=== PATIENT | female | born 1980 | race Caucasian/White ===

== ENCOUNTER → 2016-12-02 | Outpatient (CLI) | payer BC | END | disposition home or self-care (01) | LOC: C.PAPS 14:09 | PROVIDERS: ATTEND Obstetrics & Gynecology | DX: Z01.419 Encounter for gynecological examination (general) (routine) without abnormal findings (principal) ==

== ENCOUNTER → 2017-01-07 | Outpatient (CLI) | payer BC | END | disposition home or self-care (01) | LOC: C.LAB1850 11:21 | PROVIDERS: ATTEND Obstetrics & Gynecology | DX: O09.299 Supervision of pregnancy with other poor reproductive or obstetric history, unspecified trimester (principal) ==

== ENCOUNTER → 2017-02-03 | Outpatient (CLI) | payer BC | END | disposition home or self-care (01) | LOC: C.LAB1850 11:22 | PROVIDERS: ATTEND Obstetrics & Gynecology | DX: O09.299 Supervision of pregnancy with other poor reproductive or obstetric history, unspecified trimester (principal); Z3A.00 Weeks of gestation of pregnancy not specified ==

== ENCOUNTER → 2017-03-05 | Outpatient (CLI) | payer BC ==
[~2017-03-05] MED LIST: DOCO1CAP10; MAGN400T6 PO; PRENTAB26 PO
== END | disposition home or self-care (01) ==
LOC: C.LABSPEC 17:42
PROVIDERS: ATTEND Obstetrics & Gynecology
DX: O09.521 Supervision of elderly multigravida, first trimester (principal)

== ENCOUNTER → 2017-03-31 | Outpatient (CLI) | payer OTHER | END | disposition home or self-care (01) | LOC: C.LAB1850 14:43 | PROVIDERS: ATTEND Obstetrics & Gynecology | DX: O09.521 Supervision of elderly multigravida, first trimester (principal) ==

== ENCOUNTER → 2017-07-07 | Outpatient (CLI) | payer OTHER ==
[2017-07-07 16:33] LABS: HEMATOCRIT 38.9 % (37-47); HEMOGLOBIN 13.4 g/dL (12.0-16.0)
== END | disposition home or self-care (01) ==
LOC: C.LAB1850 15:06
PROVIDERS: ATTEND Obstetrics & Gynecology
DX: O09.523 Supervision of elderly multigravida, third trimester (principal); Z3A.00 Weeks of gestation of pregnancy not specified

== ENCOUNTER → 2017-07-09 | Outpatient (CLI) | payer OTHER | END | disposition home or self-care (01) | LOC: C.LAB1850 08:14 | PROVIDERS: ATTEND Obstetrics & Gynecology | DX: O28.1 Abnormal biochemical finding on antenatal screening of mother (principal) ==

== ENCOUNTER 2017-10-10 11:37 | Inpatient (IN) | payer OTHER ==
[~2017-10-10] VITALS: Ht 157.5 cm; Wt 54.5 kg
[2017-10-10] MEDS ORDERED: LACTATED RINGER'S 1000ML 1,000 ML IV PRN (11:59)
[2017-10-10] MEDS ORDERED: BUPIVACAINE 0.25% 30 ML VIAL ONE (12:08)
[2017-10-10] MEDS ORDERED: FENTANYL CITRATE INJ 50 MCG/1 ML 2 ML VIAL ONE (12:09)
[2017-10-10] MEDS ORDERED: EpHEDrine SULFATE INJ 50 MG/ML AMP ONE (12:09)
[2017-10-10] MEDS ORDERED: FENTANYL 2MCG/ML ROPIV 1.25MG/ML 100ML BAG ONE (12:10)
[2017-10-10 12:18] LABS: HEMATOCRIT 38.8 % (37-47); HEMOGLOBIN 13.6 g/dL (12.0-16.0); MEAN CELL VOLUME 93.9 fL (80-100); MEAN CORPUSCULAR HEMOGLOBIN 32.9 pg (25-34); MEAN CORPUSCULAR HGB CONC 35.1 g/dl (32-36); MEAN PLATELET VOLUME 11.1 fL (7.4-10.4); PLATELET COUNT 157 K/uL (130-400); RED CELL DISTRIBUTION WIDTH CV 13.1 % (11.5-14.5); RED CELL DISTRIBUTION WIDTH SD 45.3 fL (36.4-46.3); WHITE BLOOD COUNT 10.41 K/uL (4.8-10.8)
[2017-10-10] MEDS: LACTATED RINGER'S 1000ML 1,000 ML IV SCH ×2 (12:40→13:43)
[2017-10-10 12:43] VITALS: Ht 157.5 cm; Wt 54.5 kg
[2017-10-10] MEDS ORDERED: DOCO1CAP10 (12:46)
[2017-10-10] MEDS ORDERED: PRENTAB26 PO (12:46)
[2017-10-10] MEDS ORDERED: MAGN400T6 PO (12:47)
[2017-10-10] MEDS ORDERED: FENTANYL 2MCG/ML ROPIV 1.25MG/ML 100ML BAG EPI PRN (13:45)
[2017-10-10] MEDS ORDERED: EpHEDrine SULFATE INJ 50 MG/ML AMP IV PRN (13:45)
[2017-10-10] MEDS ORDERED: NALOXONE HCL INJ 0.4 MG/1 ML VIAL/CARP IV PRN (13:45)
[2017-10-10] MEDS ORDERED: LACTATED RINGER'S 1000ML 500 ML IV PRN (14:00)
[2017-10-10] MEDS ORDERED: OXYTOCIN 30 UNITS/500ML NSS IV ONE (14:41)
[2017-10-10] MEDS ORDERED: OXYTOCIN 30 UNITS/500ML NSS IV PRN (15:15)
[2017-10-10] MEDS ORDERED: SUPERCREAM 0.870 % 15GM JAR EXT PRN (15:15)
[2017-10-10] MEDS ORDERED: LANOLIN OINT EXT PRN (15:15)
[2017-10-10] MEDS ORDERED: ACETAMINOPHEN 325 MG TAB PO PRN (15:15)
[2017-10-10] MEDS ORDERED: BENZOCAINE 20% AER SPR 82.5 GM CAN EXT PRN (15:15)
[2017-10-10] MEDS ORDERED: OXYCODONE/ACETAMINOPHEN 5-325 TAB PO PRN (15:15)
--- NOTE | 2017-10-10 15:42 | DELIVERY SUMMARY ---
DATE OF OPERATION: 10/10/2017 Patient is a 37-year-old 5, para 1-0-3-1 white female, EDC of 10/14/2017, who presented in spontaneous labor. She ruptured spontaneously while here in labor and delivery for scant clear fluid. She received second epidural analgesia. She progressed to full dilation and pushed effectively over an intact perineum for delivery of a viable female patient. Mouth and nasopharynx were suctioned after delivery of the rest of the , and the was placed on the mother's abdomen for attention and drying. There was vigorous crying, and the was moving all 4 limbs. The cord was clamped and cut after 30 seconds by the father of the baby, and the placenta was then expressed intact with a 3-vessel cord. First degree perineal laceration was repaired with 3-0 chromic in the usual fashion. Estimated blood loss was 250 mL. Mother and infant were doing well after delivery. I attest to the content of the Intraoperative Record and any orders documented therein. Any exception s are noted below.
--- NOTE | 2017-10-10 16:33 | Anesthesia Procedure Note ---
Anesthesia Epidural Removal Nt Date & Time Oct 10, 2017 at 16:32 Vital Signs Pain Intensity: 2 Notes Mental Status: alert / awake / arousable, participated in evaluation Nausea / Vomiting: adequately controlled Pain: adequately controlled Airway Patency, RR, SpO2: stable & adequate BP & HR: stable & adequate Hydration State: stable & adequate Neuraxial Anesthesia: was administered Anesthetic Complications: no major complications apparent, pt satisfied with anesthetic care Epidural: removed without complications, with tip intact
[2017-10-10] MEDS: IBUPROFEN 600 MG TAB PO PRN ×2 (17:30→21:56)
[2017-10-10 18:40] VITALS: BP 113/75; PULSE 103; TEMP 36.7
[2017-10-10] MEDS: DOCUSATE SODIUM 100 MG CAP PO SCH (21:25)
[2017-10-10 23:30] VITALS: BP 99/61; PULSE 85; TEMP 36.6; O2SAT 94
[2017-10-11] MEDS: IBUPROFEN 600 MG TAB PO PRN ×5 (02:10→19:27)
[2017-10-11 02:45] VITALS: BP 107/72; PULSE 79; TEMP 36.4; O2SAT 99
--- NOTE | 2017-10-11 06:05 | Discharge Instructions ---
Discharge Instructions Date of Service Oct 11, 2017. Admission Reason for Admission: R/O Labor Discharge Discharge Diagnosis / Problem: normal delivery recovery Discharge Goals Goal(s): Routine recovery after delivery Medications Continue Dispensed Medications: supercream, dermaplast, tucks, lansinoh Activity Recommendations Activity Limitations: per Instructions/Follow-up section . Instructions / Follow-Up Instructions / Follow-Up ACTIVITY RECOMMENDATIONS: * Gradual return to full activity over the next 2-3 weeks. * No lifting - nothing heavier than baby over the next 2-3 weeks. * Do not engage in vigorous exercise, sexual activity or sports until cleared by your physician. * Do not drive or operate any motorized equipment until cleared by your physician. * You may shower/bathe daily. MEDICATIONS: For discomfort or pain, you may use Acetaminophen (Tylenol), Ibuprofen (Advil), or Naproxen (Aleve) following the package directions. For constipation you may use Colace following the package directions. BREAST CARE: If you are not breast feeding: * Wear a supportive bra 24 hours a day for one to two weeks. * Avoid stimulating your breasts and nipples as much as possible during the first few weeks after delivery. * When taking a shower, have the warm water hit your back, not breasts. * When your breasts feel full, apply ice packs. Usually three to four times a day helps ease the discomfort. * Take a mild pain medication (Tylenol / Motrin) when you are uncomfortable. If breast feeding: * Use breast milk to lubricate nipples. Lansinoh cream may be used for sore nipples. You do not need to remove cream prior to breast feeding. If using a different brand of cream, check the label for directions regarding removal of cream prior to nursing. * Wear a supportive bra. * If having problems with breasts or breast feeding, call a lending consultant or your health care provider. EPISIOTOMY CARE: After delivery, if you have an episiotomy (stitches), the following steps will ease discomfort and aid healing. * For the first 24 hours after delivery, place ice packs next to your episiotomy to help reduce swelling. * After the first 24 hour-period, sitz baths, either portable or in the tub, are suggested. A shower with a shower arm sprayed over the episiotomy may be comforting. * Rubi care should be done after each voiding and bowel movement. Squirt warm water from a plastic bottle over the perineum (region of the body between the anus and urinary opening) and pat dry. * Use Dermoplast to ease discomfort. Shake container. [place] directly over the episiotomy. Place a Tucks on a clean sanitary pad next to your episiotomy. SPECIAL CARE INSTRUCTIONS: When you are discharged from the hospital, it is important for you to follow the instructions listed below: * During the first week at home, you should be able to care for yourself and your baby. In addition, the usual light household activities are encouraged. * Limit your activities to the way you feel. Do not try to clean the house or move furniture. Be sensible. * If you actively engage in sports and have done so up until the time of your delivery, you may resume these activities as soon as you feel able. This may take up to one month or even longer. Use good judgment. * Continue to take your vitamins for at least six weeks after the of your baby. * Your diet need not be limited unless you were on a special diet before your delivery. Breast-feeding mothers need around 2500 calories per day and at least 64-80 ounces of fluid per day (8 to 10 glasses). * You should eat foods from the four major food groups. Crash diets or fad diets are to be avoided. Eating lean meats, fresh fruits and vegetables, low-fat dairy products, high fiber foods and a regular exercise program, will help you get back to your pre- weight without putting your health at risk. * Constipation is sometimes a problem after delivery. Take a mild laxative as needed. If breast feeding, Milk of Magnesia is acceptable to use. You may use a suppository or Fleets enema if no episiotomy. * A daily shower or tub bath is suggested. Be sure to thoroughly and gently dry the perineum. * A bloody vaginal discharge will usually continue until around four weeks post . A small amount of bleeding may continue for as long as six weeks. Vaginal discharge changes from the bright red bleeding after delivery to pink then brownish and finally yellowish-pink before becoming white and disappearing. * Bleeding may increase with activity. Your first period may come in 4-8 weeks. If you are breast feeding, your period may be delayed even longer. * [place] (sex) can begin whenever both you and your partner feel comfortable and do not have any form of genital infection. It is recommended that you wait at least six weeks for internal and external healing to occur. If you have questions, please talk to your health care practitioner. A condom should be used to prevent infection and . * Foreplay, gentle intercourse and lubrication is very important the first several times to prevent pain. A water-based lubricant such as K-Y jelly or Astroglide may be used. * If you have RH negative blood and your baby is RH positive, you will receive RHOGAM by injection prior to discharge. The nurse will give you a card to keep with you that has the date and place that you received RHOGAM after delivery. * During your care, you had a Rubella screen done to check for the presence of rubella antibodies in your blood. If your test was negative, you will receive a Rubella vaccine prior to discharge. This vaccine may cause a fever, soreness at the injection site and flu-like symptoms. If these symptoms persist, notify your health care practitioner. is not advised for one month after a Rubella vaccine. * Verbalizes understanding of car seat law as reviewed with patient nursing. * Car Seat hand-out given and reviewed with patient by nursing. * Shaken baby information reviewed with patient by nursing. Call you doctor if: * Heavy bleeding (saturating several pads an hour) or passing clots the size of your fist. * A fever >101 degrees F (38.3 degrees C) on two occasions four hours apart and /or chills. * Unusual pain in the pelvic or vaginal areas. * "Baby Blues" lasting longer than two weeks. If you have any questions or concerns, call your health care practitioner at . FOLLOW UP VISIT: * Please call the office at to schedule a 6 week examination. It is important you keep this appointment. It is important for you to make arrangements for either yearly or twice yearly check-ups thereafter. Current Hospital Diet Patient's current hospital diet: Regular OB Diet Discharge Diet Recommended Diet: Regular OB Diet Pending Studies Studies pending at discharge: no Medical Emergencies . Who to Call and When: Medical Emergencies: If at any time you feel your situation is an emergency, please call 911 immediately. . Non-Emergent Contact Non-Emergency issues call your: Access Rep . . "Provider Documentation" section prepared by Awilda Simental .
--- NOTE | 2017-10-11 06:49 | Progress Note ---
Subjective Oct 11, 2017. Subjective conversation w/ patient, conversation w/ family, physical exam, chart review, lab review Ambulation: ambulating normally Voiding: no voiding problems Passing Gas: Yes Diet Tolerance: Regular Diet Lochia: Small Feeding Type: Breast Feeding Review of Systems Constitutional: No fever Respiratory: No shortness of breath Cardiac: No chest pain Abdomen: No nausea, No vomiting No headache Objective Vital Signs Date Time Temp Pulse Resp B/P (MAP) Pulse Ox O2 Delivery O2 Flow Rate FiO2 10/11/17 02:45 36.4 79 16 107/72 (84) 99 Room Air 10/10/17 23:30 Room Air 10/10/17 23:30 36.6 85 16 99/61 (74) 94 Room Air 10/10/17 18:40 36.7 103 18 113/75 (88) Room Air 10/10/17 18:40 Room Air Physical Exam General Appearance: WELL-APPEARING, WD/WN Respiratory/Chest: no respiratory distress, no accessory muscle use Fundus: Firm, Non-Tender, Relation to Umbilicus (2cm inferior to umbilicus) Laboratory Results Last 24 Hours Test 10/10/17 12:05 10/11/17 04:44 White Blood Count 10.41 K/uL Red Blood Count 4.13 M/uL Hemoglobin 13.6 g/dL Hematocrit 38.8 % Mean Corpuscular Volume 93.9 fL Mean Corpuscular Hemoglobin 32.9 pg Mean Corpuscular Hemoglobin Concent 35.1 g/dl RDW Standard Deviation 45.3 fL RDW Coefficient of Variation 13.1 % Platelet Count 157 K/uL Mean Platelet Volume 11.1 fL Medications Current Inpatient Medications Medications (Trade) Dose Ordered Sig/Kateryna Route Start Time Stop Time Status Last Admin Dose Admin Lactated Ringer's 1,000 ml @ 125 mls/hr Q8H IV 10/10/17 11:59 10/12/17 11:58 10/10/17 13:43 125 MLS/HR Lactated Ringer's 1,000 ml @ 999 mls/hr Q1H1M PRN IV 10/10/17 11:59 11/09/17 11:58 10/10/17 12:40 999 MLS/HR Oxytocin (Pitocin IV) 30 units UD PRN IV 10/10/17 15:15 11/09/17 15:14 Benzocaine (Dermoplast Aero Spr) 1 appln PRN PRN EXT 10/10/17 15:15 11/09/17 15:14 Cocaine HCl (Supercream 0.870% Cr) BID PRN EXT 10/10/17 15:15 10/24/17 15:14 Lanolin (Lanolin Oint) PRN PRN EXT 10/10/17 15:15 11/09/17 15:14 Prenat Multivit/ Solution Director/Iron/Folic Ac ( Vitamin Tab) 1 tab DAILY PO 10/11/17 08:00 11/10/17 07:59 Ibuprofen (Motrin Tab) 600 mg Q4H PRN PO 10/10/17 15:15 11/09/17 15:14 10/11/17 05:45 600 MG Acetaminophen (Tylenol Tab) 650 mg Q6H PRN PO 10/10/17 15:15 11/09/17 15:14 Oxycodone/ Acetaminophen (Percocet 5-325mg Tab) 1 tab Q4H PRN PO 10/10/17 15:15 10/24/17 15:14 Bisacodyl (Dulcolax Tab) 5 mg 20 PO 10/11/17 20:00 10/11/17 20:01 Docusate Sodium (coLACE CAP) 100 mg BID PO 10/10/17 20:00 11/09/17 19:59 Assessment and Plan Problem List Medical Problems: (1) Normal labor Post- Day#: 1 Continue Routine Care: Resident Physician Supervision Note: I was present with Dr. Carmelita Bryant during the history and exam. I discussed the case with the resident and agree with the findings and plan as documented in the note. Any exceptions or clarifications are listed here: [None] Documented By: Awilda Brown - Vital signs reviewed and within normal limits - Encourage , ambulation - Will monitor and control pain with PRN analgesics - All questions and concerns addressed
[2017-10-11] MEDS ORDERED: PRENATAL VITAMIN TAB PO SCH (08:00)
[2017-10-11 08:19] LABS: HEMATOCRIT 36.4 % (37-47); HEMOGLOBIN 12.5 g/dL (12.0-16.0)
[2017-10-11] MEDS: DOCUSATE SODIUM 100 MG CAP PO SCH ×2 (08:42→19:26)
[2017-10-11 09:15] VITALS: BP 103/67; PULSE 90; TEMP 36.6; O2SAT 98
[2017-10-11 12:10] VITALS: BP 115/79; PULSE 83; TEMP 36.6; O2SAT 97
[2017-10-11 15:15] VITALS: BP 103/64; PULSE 89; TEMP 36.9
[2017-10-11 19:19] VITALS: BP_DIAS 64; PULSE 89; TEMP 36.9
[2017-10-11] MEDS ORDERED: BISACODYL 5 MG TABEC PO SCH (20:00)
== END 2017-10-11 19:45 | disposition home or self-care (01) | DRG 775 ==
LOC: C.OPB 11:37 → C.LD 11:37 → C.OPB 12:01 → C.LD 12:15 → C.OBG 18:38 → EDSTATUS 10-14 11:40
PROVIDERS: ADMIT Obstetrics & Gynecology; ATTEND Obstetrics & Gynecology
PROC: 10E0XZZ Delivery of Products of Conception, External Approach (ICD-10-PCS; principal; 2017-10-10)
PROC: 0HQ9XZZ Repair Perineum Skin, External Approach (ICD-10-PCS; principal; 2017-10-10)
DX: O70.0 First degree perineal laceration during delivery (principal); Z3A.39 39 weeks gestation of pregnancy; Z37.0 Single live birth

== ENCOUNTER 2021-01-23 07:44 | Inpatient (IN) ==
[2021-01-23] MEDS ORDERED: OXYTOCIN 30 UNITS/500 ML BAG IV PRN ×3 (08:26→13:45)
[2021-01-23 08:52] LABS: Hematocrit (blood only) 37.6 % (37-47); Hemoglobin 12.8 g/dL (12.0-16.0); Mean Corpuscular Hemoglobin 31.4 pg (25-34); Mean Corpuscular Volume 92.2 fL (80-100); Mean Platelet Volume 10.9 fL (7.4-10.4); Platelet Count 187 K/uL (130-400); RDW Coefficient of Variation 13.7 % (11.5-14.5); RDW Standard Deviation 46.2 fL (36.4-46.3); Red Blood Count 4.08 M/uL (4.2-5.4); White Blood Count 7.77 K/uL (4.8-10.8)
[2021-01-23] MEDS: LACTATED RINGER'S 1,000 ML IV PRN ×2 (09:16→12:20)
[2021-01-23] MEDS ORDERED: BUPIVACAINE 0.25% 30 ML VIAL ONE (11:42)
[2021-01-23] MEDS ORDERED: fentaNYL citrate 100 MCG/2 ML VIAL ONE (11:42)
[2021-01-23] MEDS ORDERED: ePHEDrine sulfate 50 MG/ML AMP ONE (11:42)
[2021-01-23] MEDS ORDERED: SODIUM CHLORIDE 0.9% INJ 10 ML VIAL ONE (11:42)
[2021-01-23] MEDS ORDERED: fentaNYL 2MCG/ML ROPIVACAINE 1.25MG/ML 100 ML BAG EPI ONE (11:43)
--- NOTE | 2021-01-23 11:49 | Labor Progress Brief Note ---
Date of Service January 23, 2021 Subjective Tolerating contractions well. May want epidural soon if AROM is completed at this exam. Assessment & Plan Admission and Anticipated Discharge Date Admission Date: January 23, 2021 Physical Exam Genitourinary: FHT Cat 1 Tarina Q4 Cvx /-2 Head well applied AROM copious clear Results & Data ([facility]) Vital Signs (Past 12 Hours) Vital Signs Temp Pulse Resp BP 01/23/21 11:38 97.7 F 01/23/21 11:22 90 102/59 L 01/23/21 10:22 85 100/56 L 01/23/21 09:19 83 105/63 01/23/21 08:17 97.7 F 20 01/23/21 08:04 94 H 122/74 Coding Level of Care Code None
[2021-01-23] MEDS ORDERED: fentaNYL 2MCG/ML ROPIVACAINE 1.25MG/ML 100 ML BAG EPI PRN (12:06)
[2021-01-23] MEDS ORDERED: NALOXONE HCL 0.4 MG/1 ML VIAL/CARP IV PRN (12:06)
[2021-01-23] MEDS ORDERED: NALOXONE HCL 1 MG in SODIUM CHLORIDE 0.9% 1000ML 1,000 ML IV PRN (12:06)
[2021-01-23] MEDS ORDERED: ePHEDrine sulfate 50 MG/ML AMP IV PRN (12:06)
[2021-01-23] MEDS ORDERED: NALBUPHINE HCL INJ 10 MG/ML AMP IV PRN (12:06)
[2021-01-23] MEDS ORDERED: diphenhydrAMINE 50 MG/ML VIAL IV PRN (12:06)
[2021-01-23] MEDS ORDERED: ONDANSETRON INJ 2 MG/ML 2 ML VIAL IV PRN (12:06)
--- NOTE | 2021-01-23 12:06 | Anesthesiology Consultation ---
Date of Service January 23, 2021 Assessment & Plan ASA ASA3 Proposed Anesthesia Anesthesia Type: Labor Epidural Risk / Benefits Reviewed With: PT / POA / Parent / Guardian, Accepts Plan and Informed Consent Obtained History Height/Weight Height: 5 ft 1 in Weight: 54.885 kg Allergies Allergy/AdvReac Type Severity Reaction Status Date / Time No Known Allergies Allergy Verified 01/23/21 08:37 Medications Home Medications Medication Instructions Recorded Confirmed Last Taken prenat.vits,marie,aba-orsy-zrwcy 1 tab PO DAILY 10/27/20 01/23/21 01/22/21 22:00 blood sugar diagnostic (OneTouch #150 ea 11/13/20 01/22/21 Unknown Verio test strips) lancets 33 gauge (OneTouch Delica #150 ea 11/13/20 01/22/21 Unknown Plus Lancet) acetone (urine) test (Ketone Urine #50 ea 11/17/20 01/22/21 Unknown Test) Active Medications Generic Name Dose Route Start Last Admin Trade Name Freq PRN Reason Stop Dose Admin Oxytocin 30 units in 500 mls @ 9 mls/hr 01/23/21 08:27 01/23/21 11:20 Pitocin IV 01/25/21 08:26 0.54 units/hr .Q24H PRN 9 mls/hr Labor Induction/Augmentation Titration Protocol 0.54 UNITS/HR Lactated Ringer's 1,000 mls @ 125 mls/hr 01/23/21 08:26 01/23/21 12:20 Lr IV 01/25/21 08:25 125 mls/hr .Q8H PRN Administration L&D Protocol Protocol Past Medical History Medical History History of chicken pox History of chlamydia History of depression History of dysmenorrhea Exercise / Class Metabolic Activity II 4-5 Yardwork/Stairs/Walk up hill Past Family History Family History (Updated 10/27/20 @ 13:33 by Noemi Jiang) Grandmother Cardiac disorder Father Hypertension Mother Osteoporosis Skin cancer Father Allergies Grandfather Myocardial infarction Prostate cancer Other High cholesterol High serum cholestanol Denies family history of Ovarian cancer Breast cancer Lung cancer Colorectal cancer Past Surgical History Surgical History S/P LASIK surgery S/P wisdom tooth extraction Past Anesthesia History No Hx of Anesthesia Complications and No Family Hx of Anesthesia Complications History of PONV No Hx of PONV and No Hx of Motion Sickness Social History Smoking Status: Never smoker Hx Alcohol Use: No Alcohol type: wine Hx Substance Use: No Review of Systems denies fever/cough/ colds/ chest pain/ SOB/ IAN denies IAN Physical Exam Vital Signs Last Vital Signs Temp 36.5 C 01/23/21 11:38 Pulse 74 01/23/21 12:33 Resp 20 01/23/21 11:38 BP 107/66 01/23/21 12:33 Pulse Ox 98 01/23/21 12:31 ENMT Mouth: no TMJ abnormality and no dentition abnormality Thyromental Distance: > or= 3.5 Finger Breadths Mallampati Class: II Neck neck extension not limited Respiratory normal respiratory effort; no respiratory distress Auscultation: lungs clear to auscultation bilaterally Cardiovascular Rate/Rhythm: regular rate and regular rhythm Neurologic moves all extremities Psychiatric Orientation: alert and oriented x 3 Testing Laboratory Results 01/23/21 08:36
[2021-01-23] MEDS ORDERED: BENZOCAINE 20% AER SPR 82.5 GM CAN EXT PRN (13:45)
[2021-01-23] MEDS ORDERED: DIPHTHERIA/TETANUS/PERTUSSIS 0.5 ML SYR/VIAL IM ONE (13:45)
[2021-01-23] MEDS ORDERED: SUPERCREAM 0.870% 15 GM JAR EXT PRN (13:45)
[2021-01-23] MEDS ORDERED: ACETAMINOPHEN 325 MG TAB PO PRN (13:45)
[2021-01-23] MEDS ORDERED: HYDROCORTISONE ACETATE 25 MG SUPP PR PRN (13:45)
[2021-01-23] MEDS ORDERED: LACTATED RINGER'S 1,000 ML IV SCH (13:45)
--- NOTE | 2021-01-23 13:56 | Delivery Summary ---
Vaginal Delivery Summary Date of Service January 23, 2021 Vaginal Delivery Summary DIAGNOSES: 1. Negrete intrauterine at 39w4d gestation. 2. Induction of Labor. 3. Group B Streptococcus Neg. PROCEDURE: Spontaneous vaginal delivery without laceration. SURGEON: Radha Julian MD. CHALK MOLDING MACHINE OPERATOR: None. ESTIMATED BLOOD LOSS: 200 mL. COMPLICATIONS: None. PLACENTA: Spontaneous and intact with a 3-vessel cord. DISPOSITION: Stable to labor and delivery. DESCRIPTION: The patient pushed well and brought the head to in DOA position. The infant's head was allowed to deliver with contraction force and no further active pushing, with the perineum protected during this time. There was a loose nuchal cord. The left shoulder was anterior. The shoulders and body delivered without any difficulty, and the infant was placed on the maternal abdomen. It was vigorous and moving all extremities, and making respiratory efforts. The cord was doubly clamped by the MD and then cut by the FOB. The placenta delivered spontaneously and was noted to be intact and with a 3VC. The cervix, vagina and perineum were examined and were found to be without defect requiring repair. The fundus was firm and lochia minimal immediately after delivery. [facility] [place] Delivery Charge Vaginal Delivery Codes: 20544 global code for the antepartum, delivery, and post-
--- NOTE | 2021-01-23 14:54 | Anesthesiology Progress Note ---
Date of Service January 23, 2021 Anesthesia Post Procedure Vital Signs Vital Signs: Temp Pulse Resp BP Pulse Ox 01/23/21 14:51 80 109/69 01/23/21 14:38 82 109/66 01/23/21 14:37 18 01/23/21 14:22 95 H 20 124/77 01/23/21 14:06 87 20 120/69 01/23/21 13:51 87 20 129/89 01/23/21 13:41 94 H 97 01/23/21 13:39 98 H 90 01/23/21 13:36 110 H 97 01/23/21 13:35 36.7 C 20 01/23/21 13:31 88 97 01/23/21 13:26 81 97 01/23/21 13:21 102 H 99/60 L 96 01/23/21 13:20 20 01/23/21 13:16 86 98 01/23/21 13:11 85 96 01/23/21 13:06 98 H 98/59 L 96 01/23/21 13:05 20 01/23/21 13:01 90 97 01/23/21 12:56 100 H 96 01/23/21 12:51 95 H 99/61 L 97 01/23/21 12:50 20 01/23/21 12:46 84 106/61 97 01/23/21 12:41 98 H 96 01/23/21 12:39 85 111/65 01/23/21 12:37 81 110/64 01/23/21 12:36 84 96 01/23/21 12:35 86 20 105/63 01/23/21 12:33 74 107/66 01/23/21 12:31 82 105/64 98 01/23/21 12:29 86 113/70 01/23/21 12:26 81 98 01/23/21 12:24 89 110/70 01/23/21 12:21 85 98 01/23/21 12:16 91 H 115/73 99 01/23/21 12:12 36.7 C 01/23/21 11:38 36.5 C 20 01/23/21 11:22 90 102/59 L 01/23/21 10:22 85 100/56 L 01/23/21 09:19 83 105/63 01/23/21 08:17 36.5 C 20 01/23/21 08:04 94 H 122/74 Pain Intensity Bilateral Abdomen: Pain Intensity: 2 Transfer of Care Handoff Completed per policy Notes Mental Status: alert / awake / arousable and participated in evaluation Patient Amnestic to Procedure: Yes Nausea / Vomiting: adequately controlled Pain: adequately controlled Airway Patency, RR, SpO2: stable & adequate BP & HR: stable & adequate Hydration State: stable & adequate Anesthetic Complications: no major complications apparent and Pt Satisfied with anesthetic care
[2021-01-23] MEDS: DOCUSATE SODIUM 100 MG CAP PO SCH (20:40)
[2021-01-23] MEDS: IBUPROFEN 600 MG TAB PO PRN (20:40)
--- NOTE | 2021-01-24 05:43 | Obstetrical Progress Note ---
Date of Service <Vincenzo Moody - Last Filed: 01/24/21 07:15> January 24, 2021 Assessment & Plan <Vincenzo Moody - Last Filed: 01/24/21 07:15> (1) Encounter for care and examination after delivery: 40 yo post day 1 from vaginal delivery, doing well. -Continue routine post care. - vital sings reviewed and WNL. (Tmax 37.8) -Blood type O+, GBS -, Rubella Immune. -Encourage ambulation, monitor and control pain with Motrin, tylenol PRN, resume regular diet, monitor lochia. -encourage breast feeding -hemoglobin 12.8 -Discussed discharge with patient if she would like to leave 24 hours past [facility] or if she would like to leave tomorrow. When she leaves she will follow up with OB clinic in 6 weeks. <Radha Julian MD - Last Filed: 01/24/21 07:19> (1) Encounter for care and examination after delivery: Subjective <Vincenzo Marvinaudreypasquale - Last Filed: 01/24/21 07:15> Ambulation: ambulating normally Voiding: no voiding problems Passing Gas:: Yes Diet Tolerance:: regular diet Lochia:: Small Feeding Type:: breast feeding Current Pain Level(1-10): 0 Review of Systems Denies fever, chills, sweats Denies shortness of breath, difficulty breathing, chest pain, palpitations, chest pressure. Denies breast pain. Denies dysuria. Denies headache or changes in vision Physical Exam <Vincenzo Marvinaudreypasquale - Last Filed: 01/24/21 07:15> General: Alert, oriented. No acute distress. Cardiac: Regular rate and rhythm, no murmurs/rubs/gallops. Respiratory: Clear to auscultation bilaterally a/p, no wheezes/rales/rhonchi. No increased work of breathing. Symmetrical chest rise. No respiratory distress. Abdomen: Soft, nontender, nondistended. Bowel sounds present. Uterus: Uterine fundus firm, palpable 1 cm below umbilicus. Lower Extremities: No lower extremity edema or swelling. No deep calf pain. Vinnie's negative bilaterally Results & Data ([facility]) <Vincenzo Moody DO - Last Filed: 01/24/21 07:15> Vital Signs (Past 12 Hours) Vital Signs Temp Pulse Resp BP Pulse Ox 01/24/21 03:20 36.6 C 75 16 100/60 97 01/23/21 23:45 36.7 C 77 18 95/52 L 96 01/23/21 21:26 36.6 C 83 16 103/81 98 <Radha Julian MD - Last Filed: 01/24/21 07:19> Co-Signing Physician Notes Resident Physician Supervision Note: I interviewed and examined the patient. Discussed with Dr. Moody and agree with findings and plan as documented in the note. Any exceptions or clarifications are listed here: [ ] Documented By: Radha Julian MD, FACOG Resident Activity Tracking <Vincenzo Moody DO - Last Filed: 01/24/21 07:15> Resident Involvement: Resident Care Provided Care Provided: OB Delivery
[2021-01-24 06:11] LABS: Hematocrit (blood only) 33.6 % (37-47); Hemoglobin 11.5 g/dL (12.0-16.0); Mean Corpuscular Hemoglobin 31.5 pg (25-34); Mean Corpuscular Hgb Conc 34.2 g/dL (32-36); Mean Corpuscular Volume 92.1 fL (80-100); Mean Platelet Volume 10.8 fL (7.4-10.4); Platelet Count 163 K/uL (130-400); RDW Coefficient of Variation 13.7 % (11.5-14.5); RDW Standard Deviation 46.4 fL (36.4-46.3); Red Blood Count 3.65 M/uL (4.2-5.4); White Blood Count 8.19 K/uL (4.8-10.8)
[2021-01-24] MEDS ORDERED: PRENATAL VITAMIN 1 TAB PO SCH (08:00)
[2021-01-24] MEDS: DOCUSATE SODIUM 100 MG CAP PO SCH (08:20)
[2021-01-24] MEDS: IBUPROFEN 600 MG TAB PO PRN ×2 (08:21→15:20)
== END 2021-01-24 15:38 | disposition home or self-care (01) | DRG 807 ==
LOC: 4S1 07:44 → 4S2 17:47